=== PATIENT | female | born 1955 | race Caucasian/White ===

== ENCOUNTER 2021-11-27 12:17 | Outpatient (CLI) | payer MEDICARE, OTHER, SELFPAY ==
--- NOTE | ~2021-11-27 | XR_ITS ---
EXAMINATION: XR lumbar spine min 4V, XR sacroiliac joints min 3V DATE: 11/27/2021 13:24 (accession [id number]), 11/27/2021 13:23 (accession [id number]) INDICATION: Polyarticular osteoarthritis with generalized pain TECHNIQUE: 1. Anteroposterior, lateral, and bilateral oblique views of the lumbar spine, and cone-down lateral v iew of the lumbosacral junction were obtained. 2. AP and left and right oblique views of the sacroiliac joints were obtained. COMPARISON: None. FINDINGS: 20 degree upper lumbar levoscoliosis. Sagittal alignment is normal. Vertebral body heights are normal . Severe right-sided disc height loss at L2-L3. Multilevel minimal to mild disc height loss throughou t the remainder of the lumbar and visualized lower thoracic spine. Bridging anterior osteophytes at T 10-T11. Severe right-sided lumbar facet osteoarthritis on the left at L5-S1. No pars interarticularis defects. Mild bilateral sacroiliac osteoarthritis. No erosions to suggest inflammatory arthritis. Th ere is also mild bilateral hip osteoarthritis. Cholecystectomy clips in right upper quadrant. IMPRESSION: 1. 20 degrees lumbar levoscoliosis with severe right-sided disc height loss at L2-L3 and severe multi level right-sided facet osteoarthritis. 2. Mild bilateral hip and sacroiliac osteoarthritis. Reviewed, dictated and finalized at location A. IMPRESSION: 1. 20 degrees lumbar levoscoliosis with severe right-sided disc height loss at L2-L3 and severe multilevel right-sided facet osteoarthritis. 2. Mild bilateral hip and sacroiliac osteoarthritis.
--- NOTE | ~2021-11-27 | XR_ITS ---
EXAMINATION: HAND-KATHI ARTHRITIS 3+VIEWS DATE: 11/27/2021 13:23 INDICATION: Polyarticular osteoarthritis with generalized bilateral hand pain TECHNIQUE: Posteroanterior, lateral, and oblique views of the left and of the right hands as well as a ballcatchers view of both hands were obtained. COMPARISON: None. FINDINGS: Alignment is normal. No fractures. Polyarticular osteoarthritis at the bilateral hands and wrists mos t severe at the right and moderate at the left first carpal metacarpal joints. Additional moderate se verity osteoarthritis at the bilateral triscaphe, left second metacarpophalangeal, bilateral first in terphalangeal, right second and fifth proximal interphalangeal, left second and third and right secon d-fifth distal interphalangeal joints. Mild osteoarthritis at many of the remaining joints in the kathi ateral hands and wrists. No erosions to suggest an inflammatory arthritis. Mild periarticular soft ti ssue swelling about many of the bilateral interphalangeal joints. IMPRESSION: 1. Polyarticular osteoarthritis, severe at the right first carpometacarpal joint and mild to moderate severity with typical distribution involving many of the remaining joints in the bilateral hands and wrists. Reviewed, dictated and finalized at location A. IMPRESSION: 1. Polyarticular osteoarthritis, severe at the right first carpometacarpal join t and mild to moderate severity with typical distribution involving many of the remaining joints in the bilateral hands and wrists.
--- NOTE | ~2021-11-27 | XR_ITS ---
EXAMINATION: XR foot LT standing 2V, XR foot RT standing 2V DATE: 11/27/2021 13:24 INDICATION: Muscle osteoarthritis with generalized bilateral foot pain. TECHNIQUE: 1. Standing dorsal plantar and lateral views of the left foot were obtained. 2. Standing dorsal plantar and lateral views of the right foot were obtained. COMPARISON: None. FINDINGS: Mild increased varus angulation at the right fifth metatarsophalangeal joint which measures 25 degree s there is a more normal 15 degrees on the left. Alignment is otherwise normal at the bilateral feet. No fractures. Large bilateral plantar calcaneal spurs and small bilateral Achilles calcaneal spurs. Polyarticular osteoarthritis, severe at the bilateral first metatarsophalangeal joints, moderate reinaldo rity at the left talonavicular, navicular cuneiform and second tarsometatarsal joints and mild at the majority the remaining joints in the bilateral mid and hindfeet and multiple bilateral interphalange al joints. IMPRESSION: 1. Polyarticular osteoarthritis at both feet, severe at the first metatarsophalangeal joints. Reviewed, dictated and finalized at location A. IMPRESSION: 1. Polyarticular osteoarthritis at both feet, severe at the first metatarsophal angeal joints.
[2021-11-27 13:12] LABS: Basophils Percent Auto 0.7 % (0.2-1.2); Eosinophils Absolute Auto 0.2 K/mm3 (0-0.3); Eosinophils Percent Auto 3.7 % (0-4.4); Hematocrit 37.3 % (37.0-47.0); Hemoglobin 11.5 g/dL (12.0-15.0); Immature Granulocyte Absolute 0.01 K/mm3 (0.00-0.031); Immature Granulocyte Percent A 0.2 % (0-0.5); Lymphocytes Absolute Auto 1.42 K/mm3 (0.9-3.2); Lymphocytes Percent Auto 32.6 % (18.3-44.2); Mean Corpuscular HGB Conc 30.8 g/dl (32-36); Mean Corpuscular Hemoglobin 28.7 pg (26-34); Monocytes Absolute Auto 0.4 K/mm3 (0.1-0.6); Monocytes Percent Auto 8.5 % (2.6-8.5); Neutrophils Absolute Auto 2.4 K/mm3 (1.3-6.7); Neutrophils Percent Auto 54.3 % (45.5-73.1); Platelet Count Result 183 k/mm3 (150-375); Red Blood Count 4.01 M/mm3 (4.2-5.4); White Blood Count 4.4 K/mm3 (4.5-10.0)
[2021-11-27 13:26] LABS: Alanine Aminotransferase 20 U/L (6-35); Albumin Level 4.2 g/dL (3.5-5.1); Alkaline Phosphatase 87 U/L (38-126); Anion Gap 9 mmol/L (8-16); Aspartate Amino Transferase 35 U/L (14-36); Bilirubin,Total 0.5 mg/dL (0.2-1.3); Blood Urea Nitrogen 14 mg/dL (7-17); CRP < 0.5 mg/dL (<1.0); Calcium 9.3 mg/dL (8.4-10.2); Carbon Dioxide 25 mmol/L (22-30); Chloride 103 mmol/L (98-107); Estimated Glomerular Filt Rate 50; Glucose 90 mg/dL (65-110); Sodium 137 mmol/L (137-145); Uric Acid 5.5 mg/dL (2.5-7.5)
[2021-11-27 13:29] LABS: Complement C3 147 mg/dL (88-165); Rheumatoid Factor < 8.6 IU/ML (<12)
[2021-11-27 13:52] LABS: Erythrocyte Sedimentation Rate 45 mm/hr (0-20)
[2021-11-27 14:19] LABS: Hepatitis C Virus Antibody Negative (Negative)
[2021-11-29 21:36] LABS: NIL 0.01 IU/mL; Quantiferon TB Plus, 1T NEGATIVE (NEGATIVE); TB1-NIL 0.01 IU/mL
[2021-11-30 12:00] LABS: Anti Cyclic Citrullinated Pept <16 Units (<20)
[2021-12-01 16:49] LABS: SS-A <1.0; SS-B <1.0
[2021-12-01 17:05] LABS: SM Antibody <1.0; SM/RNP Antibody <1.0
== END 2021-11-27 12:18 | disposition home or self-care (01) ==
PROVIDERS: PCP Internal Medicine; Visit Provider Internal Medicine
DX: M06.09 Rheumatoid arthritis without rheumatoid factor, multiple sites (principal); M06.9 Rheumatoid arthritis, unspecified; M19.041 Primary osteoarthritis, right hand; M19.042 Primary osteoarthritis, left hand; M19.031 Primary osteoarthritis, right wrist; M19.032 Primary osteoarthritis, left wrist; M19.071 Primary osteoarthritis, right ankle and foot; M19.072 Primary osteoarthritis, left ankle and foot; M16.0 Bilateral primary osteoarthritis of hip; M53.3 Sacrococcygeal disorders, not elsewhere classified
CPT/HCPCS: 36415; 72110; 72202; 73130; 73620; 80053; 84550; 85025; 85652; 86038; 86140; 86160; 86200; 86225; 86235; 86430; 86480; 86803

== ENCOUNTER 2022-05-24 07:48 | Outpatient (CLI) | payer MEDICARE, OTHER, SELFPAY ==
--- NOTE | ~2022-05-24 | MR_ITS ---
EXAMINATION: MR hand LT wo/w con, MR hand RT wo/w con DATE: 05/24/2022 09:50 INDICATION: Bilateral hand pain TECHNIQUE: 1. Magnetic resonance imaging (MRI) of the left hand was performed without and with 20 mL Multihance intravenous contrast to include the metacarpals and digits. Sequences included axial, sagittal and co willy T1-weighted FSE and T2-weighted FS FSE, precontrast axial T1-weighted FS FSE and postcontrast a xial, sagittal and coronal T1-weighted FS FSE. 2. MRI of the right hand was performed without and with 20 mL Multihance intravenous contrast (utiliz ing the same contrast bolus) to include the metacarpals and digits. Sequences included axial, sagitta l and coronal T1-weighted FSE and T2-weighted FS FSE, precontrast axial T1-weighted FS FSE and postco ntrast axial, sagittal and coronal T1-weighted FS FSE. COMPARISON: Bilateral hand radiographs dated 11/27/2021 FINDINGS: Normal alignment at both hands. Relatively symmetric pattern of osteoarthritis at the bilateral hands characterized by nonuniform joint space narrowing, hypertrophic marginal osteophytes and degenerativ e subarticular cystlike and edema-like changes. There is peripheral synovial enhancement at some of t he larger degenerative subchondral cysts at the bilateral carpi. This is severe at the right first ca rpal metacarpal joint, moderate severity at the left first carpometacarpal joint and at the bilateral and second carpometacarpal, triscaphe, second metacarpophalangeal and multiple bilateral interphalan geal joints with distal predominance. Mild osteoarthritis at the wrist, midcarpal and many of the rem aining metacarpophalangeal and interphalangeal joints. Physiologic amount fluid in the joint spaces. The visualized portion of the flexor and extensor tendons as well as intrinsic musculature of both nichols nds is normal. IMPRESSION: 1. Typical relatively symmetric distribution of polyarticular osteoarthritis at the bilateral hands, severe at the right first carpometacarpal joint and otherwise mild to moderate severity. Reviewed, dictated and finalized at location A. [employer] IMPRESSION: 1. Typical relatively symmetric distribution of polyarticular osteoarthritis at the bilateral hands, severe at the right first carpometacarpal joint and other renteria mild to moderate severity.
[2022-05-24 12:13] LABS: Appearance Urine Clear (Clear); Bilirubin Urine Negative (Negative); Blood Urine Trace-intact (Negative); Color Urine Yellow (Yellow); Glucose Urine UA Negative (Negative); Ketones Urine Negative (Negative); Leukocyte Esterase Ur Negative LEU/UL (Negative); Nitrate Urine Negative (Negative); Protein Urine Negative (Negative); Specific Grav Ur >= 1.030 (1.001-1.035); Urobilinogen Urine 0.2 mg/dL (<2.0)
[2022-05-24 12:14] LABS: Hematocrit 37.1 % (37.0-47.0); Hemoglobin 11.5 g/dL (12.0-15.0); Mean Corpuscular Hemoglobin 27.3 pg (26-34); Mean Corpuscular Volume 87.9 fl (80-100); Mean Platelet Volume 11.3 fl (7.4-10.4); Platelet Count Result 185 k/mm3 (150-375); Red Blood Count 4.22 M/mm3 (4.2-5.4); Red Cell Distribution Width 15.9 % (11.5-14.5); White Blood Count 5.4 K/mm3 (4.5-10.0)
[2022-05-24 12:33] LABS: Calcium Oxalate Crystals Urine Present /hpf; Mucus Urine Rare /lpf; Squamous Epithelial Cell Urine Rare /hpf (Few); WBC Urine 0-3 /hpf
[2022-05-24 12:35] LABS: Add Urine Microscopic? YES
[2022-05-24 12:36] LABS: Alanine Aminotransferase 25 U/L (6-35); Albumin Level 4.2 g/dL (3.5-5.1); Alkaline Phosphatase 94 U/L (38-126); Anion Gap 8 mmol/L (8-16); Aspartate Amino Transferase 36 U/L (14-36); Bilirubin,Total 0.6 mg/dL (0.2-1.3); Blood Urea Nitrogen 16 mg/dL (7-17); CRP < 0.5 mg/dL (<1.0); Calcium 8.8 mg/dL (8.4-10.2); Carbon Dioxide 27 mmol/L (22-30); Chloride 106 mmol/L (98-107); Estimated Glomerular Filt Rate 45; Glucose 88 mg/dL (65-110); Potassium 4.1 mmol/L (3.4-5.0); Sodium 141 mmol/L (137-145)
[2022-05-24 14:04] LABS: Erythrocyte Sedimentation Rate 20 mm/hr (0-20)
== END 2022-05-24 07:49 | disposition home or self-care (01) ==
PROVIDERS: PCP Internal Medicine; Visit Provider Internal Medicine
DX: M19.042 Primary osteoarthritis, left hand (principal); M19.041 Primary osteoarthritis, right hand; M06.09 Rheumatoid arthritis without rheumatoid factor, multiple sites
CPT/HCPCS: 36415; 73220; 80053; 81001; 85027; 85652; 86140; A9577